=== PATIENT | female | born 1940 | race Caucasian/White ===

== ENCOUNTER 2018-06-24 10:51 | Outpatient (CLI) | payer MEDICARE ==
[~2018-06-24 10:51] MED LIST: ATEN25TA; HYDR25TA6; LISI40TA; ROSU10TA; ZOLP-413
== END 2018-07-01 09:33 | disposition home or self-care (01) ==
LOC: CFH 10:51
PROVIDERS: ATTEND Internal Medicine
DX: Z12.31 Encounter for screening mammogram for malignant neoplasm of breast (principal)
CPT/HCPCS: 77067